=== PATIENT | female | born 1995 | race African-American/Black ===

== ENCOUNTER 2019-08-26 02:19 | Emergency (ER) | payer SELFPAY ==
--- NOTE | 2019-08-26 08:02 | RAD ---
CHEST 2 VIEWS: DATE: 08/26/2019. COMPARISON: None. HISTORY: Possible foreign body in the throat. FINDINGS: Lungs are clear. Heart and mediastinal contours are unremarkable. IMPRESSION: No acute findings. POS: [facility]
--- NOTE | 2019-08-26 08:07 | RAD ---
TWO VIEWS OF THE NECK: DATE: 08/26/2019. COMPARISON: None. HISTORY: Evaluate for a foreign body. FINDINGS: No prevertebral soft tissue swelling. No acute osseous abnormality. No evidence for a radiopaque fo reign body seen. IMPRESSION: No discrete radiopaque foreign body is seen. If symptoms persist, CT may be beneficial. POS: [facility]
--- NOTE | 2019-08-26 09:06 | CT ---
PRELIMINARY REPORT/[facility]/EMERGENCY AFTER HOURS PROCEDURE: EXAM: CT Neck Without Intravenous Contrast. CLINICAL HISTORY: F24 presents to ED for possible FB in throat. Pt was driving and eating and singing and feels like to oth broke off and is now stuck in throat. Reports spitting up blood, denies any other complaints. TECHNIQUE: Axial computed tomography images of the neck without intravenous contrast. Sagittal and coronal refor mations performed. CONTRAST: Without COMPARISON: None provided. FINDINGS: PHARYNX: The nasopharynx, oropharyx, and hypopharynx are unremarkable. No pharyngeal mucosal based le sions. LARYNX: The larynx is unremarkable. Normal epiglottis. RETROPHARYNGEAL SPACE: No retropharyngeal soft tissue swelling or gas. SALIVARY GLANDS: The parotid, submandibular, and sublingual glands are unremarkable. LYMPH NODES: No lymphadenopathy. THYROID: The thyroid gland is unremarkable. No nodule. BONES: No acute osseous abnormality. IMPRESSION: Unremarkable CT neck without IV contrast. No foreign body or evidence of perforation. ELECTRONICALLY SIGNED BY: Michael Arboleda M.D. Aug 26, 2019 3:36:18 AM FIELD SUPPORT TECHNICIAN This report is intended for review by the ordering physician only, in accordance of law. If you recei ve this report in error, please call [facility] at [phone]. FINAL REPORT DATE: 08/26/2019. COMPARISON: None. HISTORY: Evaluate for a radiopaque foreign body within the throat. FINDINGS: This study is performed without contrast media, limiting assessment of the mucosal structures of the neck and the vascular structures, as well as for lymphadenopathy. The imaged lung apices are unremar kable. The visualized paranasal sinuses and mastoid air cells appear well aerated. Retroantral fat and parapharyngeal fat appears clear bilaterally. Limited assessment of the parotid glands, submandibular glands, tonsillar pillars, epiglottis and preepiglottic fat, hyoid bone, level of glottis, and thyroid gland appear grossly unremarkable. The visualized lung apices appear unremarkable. No discrete radiopaque foreign body is noted. No acute osseous abnormality. Multiple dental caries are noted posteriorly involving multiple mandibular and maxillary teeth. IMPRESSION: No acute findings. POS: [facility]
== END 2019-08-26 03:55 | disposition home or self-care (01) ==
LOC: ERS 02:19
DX: R09.89 Other specified symptoms and signs involving the circulatory and respiratory systems (principal); F41.9 Anxiety disorder, unspecified; F32.9 Major depressive disorder, single episode, unspecified; F17.210 Nicotine dependence, cigarettes, uncomplicated
CPT/HCPCS: 70360; 70490; 71046